=== PATIENT | female | born 1985 | race Caucasian/White ===

== ENCOUNTER 2019-10-05 17:56 | Emergency (ER) | payer OTHER, SELFPAY ==
--- NOTE | ~2019-10-05 | XR_ITS ---
EXAMINATION: XR chest 2V 10/05/2019 18:49 INDICATION: Cough and shortness of breath. Influenza B. PROCEDURE: 2 view chest COMPARISON: No prior studies for comparison. FINDINGS: The lungs are clear. The cardiomediastinal silhouette is within normal limits. There are no pleural effusions. There is no pneumothorax suspected. IMPRESSION: 1: NO ACUTE CARDIOPULMONARY DISEASE. Reviewed, dictated and finalized at location A. [employer]
--- NOTE | 2019-10-05 18:11 | ED.URI ---
HPI - URI/Sore Throat General Chief Complaint: Upper Respiratory Infection Stated Complaint: Cough,Fever Time Seen by Provider: 10/05/19 18:09 Source: patient Mode of arrival: ambulatory Limitations: no limitations History of Present Illness HPI Narrative: A 34 y/o female presents to the ED with c/o cough. Pt states that the cough started on 10/02/19 and has been constant since. She reports fever, CP, rib pain, and N/V. Pt notes that her fever was 102.3 degrees Fahrenheit at home. She took Motrin for her symptoms today with no relief. Pt adds that her child has been sick with a cough and rhinorrhea recently. She has a PMHx of diabetes and is a smoker. MD elicited complaint: cough Onset (ago): day(s) (3) Consistency: constant Relieving factors: nothing Context: sick contacts Associated symptoms: fever, chest pain, nausea, vomiting and other (Rib pain) Treatments prior to arrival: ibuprofen Related Data Home Medications Medication Instructions Recorded Confirmed blood sugar diagnostic #10 each 09/11/19 09/11/19 lancets 28 gauge #25 each 09/11/19 09/11/19 Allergies Allergy/AdvReac Type Severity Reaction Status Date / Time Cephalosporins Allergy Intermediate unknown Verified 10/05/19 18:36 cephalexin Allergy Unknown Rash Verified 10/05/19 18:36 Review of Systems Review of Systems: All systems reviewed & are unremarkable except as noted in HPI and below Constitutional: Constitutional: Reports fever(s) Cardiovascular: Cardiovascular: Reports chest pain Respiratory: Respiratory: Reports cough Gastrointestinal: Gastrointestinal: Reports nausea and Reports vomiting Musculoskeletal: Musculoskeletal: Reports arthralgias (Rib) [facility] Past Medical History Medical History (Updated 10/05/19 @ 19:54 by Jared Mina DO) Anxiety Chlamydia Depression Dietary counseling and surveillance Gonorrhea Hyperlipidemia, unspecified Type 2 diabetes mellitus with hyperglycemia Surgical History Surgical History (Updated 10/05/19 @ 18:34 by Maryse Devi) History of endometrial ablation History of partial hysterectomy History of tubal ligation Family History Family History Mother Family history of obesity Family history of arthritis Carcinoma of colon Family history of diabetes mellitus in first degree relative Grandparent Family history of obesity Carcinoma of colon Family history of congestive heart failure Diabetes mellitus Social History Social History Smoking status: Current every day smoker Alcohol intake: current Gender identity (if verbalized by the patient): Female Exam Narrative: Exam Narrative: APPEARANCE: No acute distress, nontoxic, resting in bed EYES: EOMI HEENT: Normocephalic, atraumatic, TMs clear bilaterally, bilateral turbinates boggy, mild erythema no exudate posterior pharynx, uvula midline RESPIRATORY: No respiratory distress mild wheezing upper lung tilley, no rhonchi or rales CARDIOVASCULAR: Regular rate and rhythm without murmurs rubs or gallops. ABDOMINAL: Soft, nontender, nondistended, no rebound or guarding MUSCULOSKELETAl: Moves all extremities. No clubbing, cyanosis or edema. NEURO: Awake and alert. Following commands, speech normal, no focal deficits SKIN:: Warm, dry. No rashes lesions or abrasions PSYCHIATRIC: Normal affect/mood, Course Course Emergency Course: Patient given breathing treatment in ED. Following breathing treatment repeat lung exam clear to all station bilaterally Discussed with patient results of workup and diagnosis. Discussed need for follow-up with primary care, proper use of medication, and reasons to return to the emergency department. Patient understands and agrees to current treatment plan Vital Signs Vital signs: Vital Signs Pulse Rate 96 10/05/19 18:29 Respiratory Rate 20 10/05/19 18:29 Temperature 99.7 F H 10/05/19 18:32 Pulse Ra
[2019-10-05] MEDS: ALBUTEROL SULFATE NEB 2.5 MG/0.5 ML INH 5 MG INHALATION (18:27)
[2019-10-05] MEDS: IPRATROPIUM BR 0.02% INH SOLN 0.5 MG/2.5 ML VIAL INHALATION (18:27)
[2019-10-05 18:29] VITALS: PULSE 96; RESP 20
[2019-10-05] MEDS: ONDANSETRON INJ 4 MG/2 ML VIAL IV PUSH (18:29)
[2019-10-05] MEDS: SODIUM CHLORIDE 0.9% IV 1,000 ML 999 ML IV CONT (18:29)
[2019-10-05 18:32] VITALS: BP 130/76; PULSE 93; RESP 19; TEMP 37.6; O2SAT 100
[2019-10-05 18:34] VITALS: O2SAT 96
[2019-10-05 18:38] VITALS: PULSE 77; RESP 20
[2019-10-05 18:45] LABS: Basophils Percent Auto 0.2 % (0.2-1.2); Eosinophils Percent Auto 0.2 % (0-4.4); Hematocrit 39.5 % (37.0-47.0); Hemoglobin 13.4 g/dL (12.0-15.0); Immature Granulocyte Absolute 0.02 K/mm3 (0.00-0.031); Immature Granulocyte Percent A 0.4 % (0-0.5); Lymphocytes Absolute Auto 1.03 K/mm3 (0.9-3.2); Lymphocytes Percent Auto 21.1 % (18.3-44.2); Mean Corpuscular HGB Conc 33.9 g/dl (32-36); Mean Corpuscular Hemoglobin 30.2 pg (26-34); Mean Platelet Volume 9.8 fl (7.4-10.4); Monocytes Absolute Auto 0.5 K/mm3 (0.1-0.6); Monocytes Percent Auto 10.6 % (2.6-8.5); Neutrophils Absolute Auto 3.3 K/mm3 (1.3-6.7); Neutrophils Percent Auto 67.5 % (45.5-73.1); Platelet Count Result 200 k/mm3 (150-375); Red Blood Count 4.44 M/mm3 (4.2-5.4); Red Cell Distribution Width 12.3 % (11.5-14.5); White Blood Count 4.9 K/mm3 (4.5-10.0)
[2019-10-05 19:03] LABS: Alanine Aminotransferase 18 U/L (4-35); Albumin Level 3.9 g/dL (3.5-5.1); Alkaline Phosphatase 55 U/L (38-126); Aspartate Amino Transferase 22 U/L (14-36); Bilirubin,Total 0.2 mg/dL (0.2-1.3); Blood Urea Nitrogen 10 mg/dL (7-17); Calcium 8.6 mg/dL (8.4-10.2); Carbon Dioxide 25 mmol/L (22-30); Chloride 98 mmol/L (98-107); Estimated Glomerular Filt Rate > 60; Glucose 131 mg/dL (65-105); Sodium 137 mmol/L (137-145)
[2019-10-05 20:08] VITALS: BP 106/57; PULSE 89; RESP 18; O2SAT 96
--- NOTE | 2019-10-11 07:15 | PC.NURSE ---
LATE ENTRY This note is being entered to document information to the patient's record. The following information was omitted on 10/05/2019 by Beatrice Duncan. IV acetaminophen stopped at 1826 by this RN.
== END 2019-10-05 20:10 | disposition home or self-care (01) ==
PROVIDERS: Emergency Provider Emergency Medicine; PCP Family Medicine Adolescent Medicine
DX: J10.1 Influenza due to other identified influenza virus with other respiratory manifestations (principal); F17.200 Nicotine dependence, unspecified, uncomplicated; Z79.84 Long term (current) use of oral hypoglycemic drugs
CPT/HCPCS: 36415; 71046; 80053; 85025; 87804; 94640; 96361; 96374; 96375; 99284; J0131; J2405; J7030

== ENCOUNTER 2020-01-04 07:10 | Outpatient (CLI) | payer OTHER, SELFPAY ==
[2020-01-04 08:17] LABS: Alanine Aminotransferase 18 U/L (4-35); Albumin Level 4.3 g/dL (3.5-5.1); Alkaline Phosphatase 58 U/L (38-126); Aspartate Amino Transferase 17 U/L (14-36); Bilirubin,Total 0.2 mg/dL (0.2-1.3); Blood Urea Nitrogen 15 mg/dL (7-17); Calcium 9.1 mg/dL (8.4-10.2); Carbon Dioxide 29 mmol/L (22-30); Chloride 103 mmol/L (98-107); Cholesterol 172 mg/dL (0-200); Estimated Glomerular Filt Rate > 60; Glucose 212 mg/dL (65-105); HDL Direct 41 mg/dL; Potassium 4.5 mmol/L (3.4-5.0); Sodium 138 mmol/L (137-145); Triglycerides 156 mg/dL (<150)
[2020-01-04 08:22] LABS: Creatinine Urine 58.2 mg/dL
[2020-01-04 08:28] LABS: LDL Cholesterol Direct 106 mg/dL
[2020-01-04 08:43] LABS: MALB Creatinine Ratio < 10.3 mg/g (0-30); Microalbumin Urine Random < 6.0 mg/L (0-16.7)
== END 2020-01-04 07:11 | disposition home or self-care (01) ==
PROVIDERS: PCP Family Medicine Adolescent Medicine; Visit Provider Physician Assistant
DX: E11.65 Type 2 diabetes mellitus with hyperglycemia (principal)
CPT/HCPCS: 36415; 80053; 80061; 82043; 84443

== ENCOUNTER 2021-01-09 08:36 | Outpatient (CLI) | payer OTHER, SELFPAY ==
[2021-01-09 09:06] LABS: Alanine Aminotransferase 16 U/L (4-35); Albumin Level 4.2 g/dL (3.5-5.1); Alkaline Phosphatase 44 U/L (38-126); Anion Gap 5 mmol/L (8-16); Aspartate Amino Transferase 33 U/L (14-36); Bilirubin,Total 0.6 mg/dL (0.2-1.3); Blood Urea Nitrogen 15 mg/dL (7-17); Calcium 9.1 mg/dL (8.4-10.2); Carbon Dioxide 30 mmol/L (22-30); Chloride 106 mmol/L (98-107); Cholesterol 208 mg/dL (0-200); Estimated Glomerular Filt Rate > 60; Glucose 141 mg/dL (65-105); HDL Direct 47 mg/dL; Potassium 4.6 mmol/L (3.4-5.0); Sodium 141 mmol/L (137-145); Triglycerides 96 mg/dL (<150)
[2021-01-09 09:17] LABS: LDL Cholesterol Direct 112 mg/dL
[2021-01-09 09:23] LABS: Creatinine Urine 179.6 mg/dL
[2021-01-09 09:28] LABS: MALB Creatinine Ratio 4.7 mg/g (0-30); Microalbumin Urine Random 8.5 mg/L (0-16.7)
== END 2021-01-09 08:37 | disposition home or self-care (01) ==
PROVIDERS: PCP Family Medicine Adolescent Medicine; Visit Provider Physician Assistant
DX: E11.65 Type 2 diabetes mellitus with hyperglycemia (principal); E78.5 Hyperlipidemia, unspecified
CPT/HCPCS: 36415; 80053; 80061; 82043; 84443

== ENCOUNTER 2021-05-08 18:41 | Emergency (ER) | payer OTHER, SELFPAY ==
--- NOTE | 2021-05-08 19:28 | PC.NURSE ---
Patient called for triage, no answer. will call again.
--- NOTE | 2021-05-08 19:56 | PC.NURSE ---
1953 patient called again for triage. No answer. Patient not seen in waiting room or outside.
== END 2021-05-09 03:15 | disposition left against medical advice (07) ==
LOC: ANHED 20:03
PROVIDERS: PCP Family Medicine Adolescent Medicine
DX: Z53.21 Procedure and treatment not carried out due to patient leaving prior to being seen by health care provider (principal)
CPT/HCPCS: 99199

== ENCOUNTER 2022-12-05 08:45 | Emergency (ER) | payer BC, SELFPAY ==
[2022-12-05 09:10] VITALS: BP 127/88; PULSE 87; RESP 16; TEMP 36.7; O2SAT 99
--- NOTE | 2022-12-05 09:12 | ED.FEMALEGU ---
HPI - Female Genitourinary General Chief complaint: Urogenital-Female Stated complaint: uti Time Seen by Provider: 12/05/22 09:12 Source: patient Mode of arrival: ambulatory Limitations: no limitations History of Present Illness HPI Narrative: 37-year-old female presents with complaint of pelvic pressure, urinary frequency for 2 days. Reports similar symptoms at the beginning the month and had tele doc appointment that prescribed an antibiotic. Reports that it helped for a few days and then symptoms return. Called tele doc again and wanted patient to be seen at [facility]. 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 She denies nausea vomiting diarrhea. Afebrile. Not sexually active. Afebrile. All systems reviewed and negative except as noted above. Related Data Allergies Allergy/AdvReac Type Severity Reaction Status Date / Time cephalexin Allergy Intermediate Rash Verified 12/05/22 09:19 Cephalosporins Allergy Intermediate Rash Verified 12/05/22 09:19 Review of Systems Review of Systems: CONSTITUTIONAL: Denies fever, chills, or sweats. EYES: Denies visual changes, redness, or discharge. ENT: Denies rhinorrhea, congestion, sore throat, or otalgia. CARDIOVASCULAR: Denies chest pain, palpitations, or edema. RESPIRATORY: Denies cough or dyspnea. GASTROINTESTINAL: Denies abdominal pain, nausea, vomiting, or diarrhea. GENITOURINARY: Reports pelvic pressure and urinary frequency. Denies dysuria or hematuria. SKIN: Denies rash or itching. MUSCULOSKELETAL: Denies back pain, joint pain, or myalgia. NEUROLOGIC: Denies headache, numbness, or weakness. PSYCHIATRIC: Denies anxiety or depression. All other systems reviewed are negative, except as documented in HPI. [facility] Past Medical History Medical History Anxiety Chlamydia Depression Gonorrhea Hyperlipidemia, unspecified Type 2 diabetes mellitus with hyperglycemia Surgical History Surgical History History of endometrial ablation History of partial hysterectomy History of tubal ligation Hx of thumb surgery Reattachment at age 9 Hx of wisdom tooth extraction Family History Family History Mother Family history of obesity Family history of arthritis Carcinoma of colon Family history of diabetes mellitus in first degree relative Grandparent Family history of obesity Carcinoma of colon Family history of congestive heart failure Diabetes mellitus Social History Social History Smoking status: Current every day smoker Alcohol intake: current Gender identity (if verbalized by the patient): Female Comments At time of signature, agree with nursing past medical, surgical, social and family history. There is no relevant family history pertinent to the presenting complaint. Exam Narrative: GENERAL: This is a well-nourished, well-developed patient, in no apparent distress. HEAD: normocephalic, atraumatic. EYES: PERRL. Sclera clear/white. Vision is grossly intact. EARS: External ears normal NOSE: External nose normal NECK: Neck supple, non-tender without lymphadenopathy, masses or thyromegaly. CARDIOVASCULAR: Regular rate and rhythm without murmurs, gallops, or rubs. RESPIRATORY: Clear to auscultation. Breath sounds equal bilaterally. No wheezes, rales, or rhonchi. GASTROINTESTINAL: Abdomen soft, non-tender, nondistended. Bowel sounds are active. No hepato-splenomegaly, or palpable masses. No guarding. SKIN: warm, Dry, intact with no suspicious lesions or rash, good texture and turgor. NEURO: awake, alert, and oriented to person, place and time. There were no obvious focal neurologic abnormalities. EXTREMITIES: No joint tenderness, effusion, or edema noted.
== END 2022-12-05 09:28 | disposition home or self-care (01) ==
PROVIDERS: Emergency Provider Nurse Practitioner Family; PCP Family Medicine Adolescent Medicine
DX: R35.0 Frequency of micturition (principal); R10.2 Pelvic and perineal pain; F17.200 Nicotine dependence, unspecified, uncomplicated; E78.5 Hyperlipidemia, unspecified; E11.9 Type 2 diabetes mellitus without complications; Z90.711 Acquired absence of uterus with remaining cervical stump
CPT/HCPCS: 81003; 99213; G0463

== ENCOUNTER 2023-07-30 18:25 | Emergency (ER) | payer BC, SELFPAY ==
[2023-07-30 18:26] VITALS: BP 113/67; PULSE 88; RESP 16; TEMP 36.1; O2SAT 100
--- NOTE | 2023-07-30 19:40 | ED.WOUNDLAC ---
HPI - Wound/Laceration General Chief Complaint: Wound/Laceration Stated Complaint: right middle finger swelling Time Seen by Provider: 07/30/23 19:22 History of Present Illness HPI narrative: 38-year-old female reports for evaluation for tenderness and redness to the right 3rd proximal nail fold x4 days. Patient states 4 days ago she pulled a hangnail from her finger and then shortly after developed the symptoms. She has tried poking the area with a needle and has not had any drainage. She denies fever, vomiting. Related Data Allergies Allergy/AdvReac Type Severity Reaction Status Date / Time cephalexin Allergy Intermediate Rash Verified 07/30/23 18:45 Cephalosporins Allergy Intermediate Rash Verified 07/30/23 18:45 Review of Systems Review of Systems: CONSTITUTIONAL: Denies fever, chills, or sweats. EYES: Denies visual changes, redness, or discharge. ENT: Denies rhinorrhea, congestion, sore throat, or otalgia. CARDIOVASCULAR: Denies chest pain, palpitations, or edema. RESPIRATORY: Denies cough or dyspnea. GASTROINTESTINAL: Denies abdominal pain, nausea, vomiting, or diarrhea. GENITOURINARY: Denies dysuria or hematuria. SKIN: See HPI MUSCULOSKELETAL: Denies back pain, joint pain, or myalgia. NEUROLOGIC: Denies headache, numbness, or weakness. PSYCHIATRIC: Denies anxiety or depression. [facility] Past Medical History Medical History Anxiety Chlamydia Depression Gonorrhea Hyperlipidemia, unspecified Type 2 diabetes mellitus with hyperglycemia Surgical History Surgical History History of endometrial ablation History of partial hysterectomy History of tubal ligation Hx of thumb surgery Reattachment at age 9 Hx of wisdom tooth extraction Family History Family History Mother Family history of obesity Family history of arthritis Carcinoma of colon Family history of diabetes mellitus in first degree relative Grandparent Family history of obesity Carcinoma of colon Family history of congestive heart failure Diabetes mellitus Social History Social History Smoking status: Current every day smoker Tobacco type: cigarettes Alcohol intake: never Substance use: current Substance use type: marijuana Other substance usage details: once every couple of weeks Living arrangements: other Additional living arrangements comments: single Occupation/Education: occupation 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 HEAD: Normocephalic, atraumatic. NECK: Supple. CHEST: Clear to auscultation. No respiratory distress. HEART: Regular rate and rhythm. No murmur heard. Normal peripheral pulses. EXTREMITIES: Normal range of motion. No edema. SKIN: Right 3rd finger with erythema, edema and tenderness to the proximal and radial aspect of the nail fold. Possible small area of fluctuance. Cap refill <2. Full ROM of finger. Sensation intact. NEURO: No focal deficits. Alert and oriented x3 Course Vital Signs Vital signs: Vital Signs Temperature 97 F L 07/30/23 18:26 Pulse Rate 88 07/30/23 18:26 Respiratory Rate 16 07/30/23 18:26 Blood Pressure 113/67 07/30/23 18:26 Pulse Oximetry 100 07/30/23 18:26 Oxygen Delivery Room Air 07/30/23 18:26 Temperature 97 F L 07/30/23 18:26 Pulse Rate 88 07/30/23 18:26 Respiratory Rate 16 07/30/23 18:26 Blood Pressure 113/67 07/30/23 18:26 Pulse Oximetry 100 07/30/23 18:26 Oxygen Delivery Room Air 07/30/23 18:26 MDM - Wound/Laceration MDM Narrative Medical decisi
[2023-07-30] MEDS: AMOXICILLIN/CLAVULANATE K 875-125 MG TAB 1 TABLET PO (19:58)
== END 2023-07-30 20:00 | disposition home or self-care (01) ==
PROVIDERS: Emergency Provider Physician Assistant; PCP Family Medicine Adolescent Medicine
DX: L03.011 Cellulitis of right finger (principal); E11.9 Type 2 diabetes mellitus without complications; E78.5 Hyperlipidemia, unspecified; Z90.711 Acquired absence of uterus with remaining cervical stump; F17.210 Nicotine dependence, cigarettes, uncomplicated
CPT/HCPCS: 26010; 99283; A9270

== ENCOUNTER 2024-07-26 17:41 | Emergency (ER) | payer BC, SELFPAY ==
[2024-07-26 18:00] VITALS: BP 108/72; PULSE 100; RESP 18; TEMP 36.6; O2SAT 98
--- NOTE | 2024-07-26 18:07 | ED_ITS ---
HPI - Ear Problem General Chief complaint: Ear Stated complaint: Left Ear Irritation Time Seen by Provider: 07/26/24 18:07 Source: patient, RN notes reviewed and old records reviewed Mode of arrival: ambulatory Limitations: no limitations History of Present Illness HPI Narrative: Left ear pain x4 days. Patient denies any injury or trauma. She voices no other concerns or complaints. She has not been taking anything for her symptoms. Reports symptoms are progressing day-to-day Related Data Allergies Allergy/AdvReac Type Severity Reaction Status Date / Time cephalexin Allergy Intermediate Rash Verified 07/31/24 14:19 Cephalosporins Allergy Intermediate Rash Verified 07/31/24 14:19 Review of Systems Review of Systems: All systems reviewed & are unremarkable except as noted in HPI and below Constitutional: Constitutional: Reports no additional constitutional complaints ENT: Reports system reviewed and no additional complaints, except as documented and Reports otalgia Cardiovascular: Cardiovascular: Reports no additional cardiovascular complaints Respiratory: Respiratory: Reports no additional respiratory complaints Gastrointestinal: Gastrointestinal: Reports no additional gastrointestinal complaints PMFSH Past Medical History Medical History Anxiety Depression Gonorrhea Chlamydia Hyperlipidemia, unspecified Type 2 diabetes mellitus with hyperglycemia Surgical History Surgical History Hx of wisdom tooth extraction Hx of thumb surgery Reattachment at age 9 History of partial hysterectomy History of tubal ligation History of endometrial ablation Family History Family History Mother Family history of obesity Family history of arthritis Carcinoma of colon Family history of diabetes mellitus in first degree relative Grandparent Family history of obesity Carcinoma of colon Family history of congestive heart failure Diabetes mellitus Social History Social History Smoking status: Current every day smoker Tobacco type: cigarettes Alcohol intake: never Substance use: current Substance use type: marijuana Other substance usage details: once every couple of weeks Do You Feel Safe in your Home?: Yes Lack of Transportation: No Lack of Food: Never True Current Housing: I Have Housing Concerned About Future Housing: No Difficulty Paying Gas/Electric Bills: No Difficulty Paying for Meds: No Currently Unemployed: No Education: High School Diploma/GED Difficulty w/ Childcare or Family Care: No Living arrangements: other Additional living arrangements comments: single Occupation/Education: occupation 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 There is no relevant family history pertinent to the patient complaint. Exam Const: General: cooperative, no acute distress, alert and awake Orientation/consciousness: oriented to person, oriented to place and oriented to time HENMT: Head: normal to inspection Ears: TM normal on the right and TM abnormal bulging on the left, erythematous on the left, with fluid behind the TM on the left and with loss of landmarks on the left Resp: Effort & Inspection: normal respiratory effort and able to speak in complete sentences Auscultation: clear to auscultation bilaterally, no crackles, no rales, no rhonchi and no wheezes Cardio: Palpation: normal PMI Rate: regular rate Rhythm: regular rhythm Heart sounds: S1 normal heart sound present and S2 normal heart sound present Neuro: General: oriented to person, oriented to place and oriented to time Cranial nerves: Yes CN's II-XII intact bilaterally Psych: Appearance: grossly normal Thought process: Normal thought process present Insight: Good insight present (Psych) Judgement: Good judgement present (Psych) Course Course Level of Care: Express Care Visit Vital Signs Vital signs: Vital Signs Temperature 98 F 07/26/24 18:00 Pulse Rate 100 07/26/24 18:00 Respiratory Rate 18 07/26/24 18:00 Blood Pressure 108/72 07/26/24 18:00 Pulse Oximetry 98 07/26/24 18:00 Oxygen Delivery Room Air 07/26/24 18:00 Temperature 98 F 07/26/24 18:00 Pulse Rate 100 07/26/24 18:00 Respiratory Rate 18 07/26/24 18:00 Blood Pressure 108/72 07/26/24 18:00 Pulse Oximetry 98 07/26/24 18:00 Oxygen Delivery Room Air 07/26/24 18:00 Reviewed Medical Decision Making MDM Narrative Medical decision making narrative: history and exam consistent with otitis media. Patient is stable for outpatient treatment with p.o. antibiotics. Discharge instructions reviewed with patient, as well as provided in writing per nursing staff. The instructions also include specific and strict return/GO TO THE ER as well as f/u information. All questions have been answered, and the patient deny any further questions with discharge and discharge plan. Some parts of this dictation were generated by voice recognition software and may contain typographical and/or grammatical inaccuracies. Differential Diagnosis Differential Diagnosis: otalgia, otitis externa Medical Records Medical records reviewed: Yes I reviewed the external patient's medical records. Vital Signs Vital Signs: Vital Signs Temperature 98 F 07/26/24 18:00 Pulse Rate 100 07/26/24 18:00 Respiratory Rate 18 07/26/24 18:00 Blood Pressure 108/72 07/26/24 18:00 Pulse Oximetry 98 07/26/24 18:00 Oxygen Delivery Room Air 07/26/24 18:00 Temperature 98 F 07/26/24 18:00 Pulse Rate 100 07/26/24 18:00 Respiratory Rate 18 07/26/24 18:00 Blood Pressure 108/72 07/26/24 18:00 Pulse Oximetry 98 07/26/24 18:00 Oxygen Delivery Room Air 07/26/24 18:00 reviewed Lab Data Lab results reviewed: Yes I reviewed the patient's lab results. Lab results narrative: reviewed Discharge Plan Discharge Clinical Impression: Otitis media Patient Disposition: Home, Self-Care Condition: Stable Instructions: Antibiotic Form, Ear Infection (ED) Additional Instructions: Take medications as prescribed. Follow-up with primary care provider. Emergency department for new or worse symptoms Patient Language: Greenlandic Prescriptions: New amoxicillin-pot clavulanate 875-125 mg tablet 1 tablet PO Q12H Qty: 20 0RF No Action Ozempic 1 mg/dose (4 mg/3 mL) pen injector 1 mg subcut WEEKLY 90 Days Qty: 9 4RF (DME) lancets 31 gauge misc See Rx Instructions .ROUTE .MEDSUPPLY Qty: 200 3RF Rx Instructions: Use to check BS 2 times daily (DME) lancets [OneTouch Delica Plus Lancet] 33 gauge misc See Rx Instructions .Route Qty: 100 6RF Rx Instructions: As directed venlafaxine 37.5 mg capsule,extended release 24hr 37.5 mg PO DAILY Qty: 30 2RF doxycycline monohydrate 100 mg capsule 100 mg PO BID Qty: 20 0RF prednisone 20 mg tablet 40 mg PO DAILY Qty: 10 0RF (DME) OneTouch Verio test strips Strip See Rx Instructions .Route Qty: 50 11RF Rx Instructions: Use to check glucose once daily Follow-up/Referrals: Dexter Gambino MD [Primary Care Provider] - 2 Weeks Time of Disposition: 18:16
== END 2024-07-26 18:25 | disposition home or self-care (01) ==
PROVIDERS: Emergency Provider Nurse Practitioner Family; PCP Family Medicine Adolescent Medicine
DX: H66.002 Acute suppurative otitis media without spontaneous rupture of ear drum, left ear (principal); F17.210 Nicotine dependence, cigarettes, uncomplicated; F12.90 Cannabis use, unspecified, uncomplicated; E11.9 Type 2 diabetes mellitus without complications; E78.5 Hyperlipidemia, unspecified
CPT/HCPCS: 99213; G0463

== ENCOUNTER → 2025-04-29 16:20 | Outpatient (CLI) | payer BC, SELFPAY ==
--- NOTE | ~2025-04-29 | XR_ITS ---
EXAMINATION: XR shoulder RT min 2V, 04/29/2025 16:25 CDT HISTORY: M25.50 - Pain in unspecified joint COMPARISON: No comparisons available. Findings: No acute fracture or malalignment. No significant degenerative changes. Soft tissues unremarkable. Impression: No acute fracture or malalignment. Reviewed, dictated and finalized at location A. Impression: No acute fracture or malalignment.
== END ==
PROVIDERS: PCP Nurse Practitioner Family; Visit Provider Nurse Practitioner Family
DX: M25.511 Pain in right shoulder (principal); Z82.61 Family history of arthritis
CPT/HCPCS: 73030